=== PATIENT | male | born 1995 | race Caucasian/White ===

== ENCOUNTER 2022-02-24 16:16 | Emergency (ER) | payer OTHER ==
[~2022-02-24] VITALS: Ht 182.9 cm; Wt 81.6 kg
[~2022-02-24 16:16] MED LIST: IBUPROFEN600 MG PO
[2022-02-24] MEDS ORDERED: OMEPRAZOLE20 MG PO (17:19)
== END 2022-02-24 19:33 | disposition home or self-care (01) ==
LOC: ED 16:16
DX: J10.1 Influenza due to other identified influenza virus with other respiratory manifestations (principal); Z20.822 Contact with and (suspected) exposure to COVID-19; K21.9 Gastro-esophageal reflux disease without esophagitis; Z91.011 Allergy to milk products; Z79.899 Other long term (current) drug therapy
CPT/HCPCS: 87502; 99283; C9803; U0003

== ENCOUNTER 2023-07-31 10:17 | Day surgery (SDC) | payer OTHER ==
[~2023-07-31] VITALS: Ht 182.9 cm; Wt 79.1 kg
[~2023-07-31 10:17] MED LIST changes: +IBLOOD GLUCOSE TEST STRIP 1 EA TEST VI PRN; +LACTATED RINGER'S 1,000 ML IV SCH; +LIDOCAINE HCL 1% 5 ML SDV INJ ONE; +LIDOCAINE HCL 4% 50 ML BTL TOP SCH; +MIDAZOLAM HCL 5 MG/5 ML VIAL IV PRN; +OMEPRAZOLE20 MG PO; +fentaNYL citrate 100 MCG/2 ML VIAL IV PRN
[2023-07-31 10:34] VITALS: BP 128/77
[2023-07-31] MEDS ORDERED: MIDAZOLAM HCL 5 MG/5 ML VIAL ONE (11:27)
[2023-07-31] MEDS ORDERED: fentaNYL citrate 100 MCG/2 ML VIAL ONE (11:27)
--- NOTE | 2023-07-31 12:03 | NUR ---
07/31/23 1203 Jessie Chery 1155- PT ARRIVES TO PACU AWAKE AND TALKING. PT REPORTS NO PAIN OR NAUSEA. RESP EVEN AND UNLABORED. OXYGEN SAT HIGH 90'S TO 100% ON 3L VIA CO2 NC. 1202- OXYGEN TITRATED OFF. PT AWAKE ON AND OFF ON HIS OWN.
[2023-07-31 12:22] VITALS: BP 111/76
--- NOTE | 2023-08-01 09:47 | OR ---
[facility] [address], [place] [address] Signed DATE OF OPERATION: 07/31/2023 SURGEON: Angela Arellano MD PREOPERATIVE DIAGNOSES: Longstanding dysphagia, longstanding history of reflux and questionable history of eosinophilic esophagitis (2018). INDICATION: This 28-year-old white man is a patient of Dr. William Zaragoza. He formally saw Dr. Brown in [place]. The patient has had "lifelong" heartburn issues and developed dysphagia on or about 2015. He has had dysphagia from time to time even before that, however. He underwent upper endoscopy in 2018 from best I can tell, showing findings suggestive of eosinophilic esophagitis and "scarring" of the esophagus. He was prescribed a PPI medication (omeprazole) as well as possible topical steroids, but has only episodically taken the PPI medication and never really engaged fully in the topical steroid use. He has no family history of esophageal cancer. He is admitted at this time to undergo upper endoscopy to better characterize the problem of dysphagia mindful of his prior history of presumed eosinophilic esophagitis and possible esophageal stricture. He understands the risk of endoscopy, which include but are not limited to bleeding, infection, and perforation and wished to proceed. FINDINGS: There is no clinical evidence of eosinophilic esophagitis. He definitely had a dense stricture of the distal esophagus. Gentle but forceful passage of the scope through the GE junction did provide some level of dilation. He does have a poor flap valve. The stomach and duodenum were normal. CLOtest was negative. The distal esophageal stricture is no doubt accounting for his dysphagia. Multiple biopsies were taken of the stricture breaking up the ring, though formal dilation was not undertaken at this time. PROCEDURE IN DETAIL: The patient was brought to the endoscopy suite and given topical lidocaine hypopharyngeal anesthesia and placed in lateral decubitus position. He was given intravenous sedation to the point of slurred speech and nystagmus. Full cardiopulmonary monitoring was maintained. A bite block was placed. Olympus video upper endoscope was passed in the hypopharynx. Vocal cords were normal. Scope was advanced to the esophagus without problem. Esophagus throughout its length looked reasonably normal except in the distal portion where it was narrow and unyielding to the scope initially. This was surprising as it appeared to be patent and certainly Electronically Signed By: ANGELA ARELLANO MD 08/01/23 0947 PATIENT NAME: YARIEL OCONNOR OPERATIVE REPORT DATE OF : [birth year] REPORT #: [id number] PHYSICIAN: ANGELA ARELLANO MD PCP: WILLIAM ZARAGOZA MD REPORT IS CONFIDENTIAL AND NOT TO BE RELEASED WITHOUT AUTHORIZATION [facility] [address], [place] [address] Signed had no sign of ulceration, irregularity, Fung's epithelium or other similar problem. With deliberate but reasonably forcible pressure, the scope was passed through the GE junction affirming a stricture like narrowing. Evaluation of the stomach showed rugal folds to be normal. The antrum was normal as was the pylorus. The scope was passed in the duodenum, which was normal. Biopsies were taken of the duodenum and scope withdrawn. Biopsies taken of the antrum for both GARY and pathologic testing. Retroflexed view was undertaken showing a distorted flap valve but no sign of large hiatal hernia at this time. The scope was straightened, withdrawn, and multiple biopsies taken of the dense stricture of the distal esophagus. There was no evidence of Fung's epithelium or neoplasm proper. The scope was withdrawn to the mid esophagus was biopsied to assess for eosinophilic esophagitis, which showed no evidence of such finding (felinization, etc.) Scope was further withdrawn. Remaining esophagus and hypopharynx were normal. The patient was taken to the recovery room in good condition. CONCLUDING DIAGNOSIS: Dysphagia related to dense stricture. No doubt related to long-standing gastroesophageal reflux. He may still require a formal dilation, however. Biopsies were obtained to assess for malignancy at this time. We will initiate PPI medication, Prilosec 20 mg p.o. b.i.d. for two weeks transitioning to 20 mg daily. I will see him in the office in 4-6 weeks, we will assess his progress. He may require dilation and most definitely may require appropriate anti-reflux operation given his young age and long history of reflux related dysphagia. MD CHRISTIN Peng/ANGYL /[id number] cc: William Zaragoza MD Copies: WILLIAM ZARAGOZA DMD ~ Electronically Signed By: ANGELA ARELLANO MD 08/01/23 0947 PATIENT NAME: YARIEL OCONNOR OPERATIVE REPORT DATE OF : [birth year] REPORT #: [id number] PHYSICIAN: ANGELA ARELLANO MD PCP: WILLIAM ZARAGOZA MD REPORT IS CONFIDENTIAL AND NOT TO BE RELEASED WITHOUT AUTHORIZATION
--- NOTE | 2023-08-05 13:03 | PATH ---
[facility] [address], [place] [address] Signed SPECIMEN(S): A DUODENAL BIOPSY SPECIMEN(S): B ANTRUM BIOPSY SPECIMEN(S): C LOWER ESOPHAGEAL BIOPSY SPECIMEN(S): D MIDDLE ESOPHAGEAL BIOPSY SPECIMEN SOURCE: A. DUODENAL BIOPSY B. ANTRUM BIOPSY C. LOWER ESOPHAGEAL BIOPSY D. MIDDLE ESOPHAGEAL BIOPSY CLINICAL HISTORY: Esophageal dysphagia and history of eosinophilic esophagitis. Distal esophageal stricture with hiatal hernia. FINAL PATHOLOGIC DIAGNOSIS: A. 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 - Mild partial villous blunting is present with focally increased intraepithelial lymphocytes, nonspecific. See comment. B. Antrum, biopsies: - Mild chronic antral gastritis with vascular congestion, negative for active inflammation. - No H. pylori bacteria are detected by HE stain. C. Lower esophagus, biopsies: - Chronic esophagitis with increased eosinophils (up to 20 per high-power field), negative for Fung's metaplasia. D. Middle esophagus, biopsies: - Mild chronic esophagitis with increased eosinophils (up to 6 per high-power field). COMMENT: The findings in the duodenal biopsies (A1) are nonspecific for celiac disease, and peptic duodenitis is more likely. However, if there is a clinical concern for sprue, correlation with appropriate serologic testing is recommended. AMB MICROSCOPIC EXAMINATION: Histologic sections of all submitted blocks are examined by light microscopy. PATIENT NAME: YARIEL DEMARCO PATHOLOGY DATE OF : [birth year] REPORT #: [id number] PHYSICIAN: ЕЛЕНА PATHOLOGY PCP: WILLIAM RANKIN MD REPORT IS CONFIDENTIAL AND NOT TO BE RELEASED WITHOUT AUTHORIZATION [facility] [address], [place] [address] Signed These findings, together with the gross examination, support the pathologic diagnosis. GROSS DESCRIPTION: A. The specimen, labeled and designated "Demarco, duodenal biopsy," is received in formalin and consists of three kent soft tissue fragments, ranging from 0.1-0.3 cm. Entirely submitted in (A1). B. The specimen, labeled and designated "Demarco, antrum biopsy," is received in formalin and consists of three kent soft tissue fragments, ranging from 0.1-0.2 cm. Entirely submitted in (B1). C. The specimen, labeled and designated "Demarco, lower esophageal biopsy," is received in formalin and consists of four kent soft tissue fragments, ranging from 0.1-0.8 cm. Entirely submitted in (C1). D. The specimen, labeled and designated "Demarco, middle esophageal biopsy," is received in formalin and consists of one kent soft tissue fragment, 0.5 cm. Entirely submitted in (D1). VB (under the direct supervision of a pathologist) The Gross Description was prepared using a voice recognition system. The report was reviewed for accuracy; however, sound-alike word errors, addition and/or deletions may occur. If there is any question about this report, please contact Client Services. ADDITIONAL NOTES: Immunohistochemical and/or in situ hybridization studies if performed in this case included appropriate positive controls that reacted as expected. This test was developed and its performance characteristics determined by [facility]. It has not been cleared or approved by the U.S. Food and Drug Administration. The FDA has determined that such clearance or approval is not necessary. This test is used for clinical purposes. It should not be regarded as investigational or for research. [facility] is certified under the Clinical Laboratory Improvement Amendments of 1988 (CLIA) as qualified to perform high complexity clinical laboratory testing. PERFORMING LABORATORY: Technical component was performed by [facility], [address] [place] [address] (CLIA# [id number]). Professional interpretation was performed by [facility] [address] [facility] [id number] PATIENT NAME: YARIEL DEMARCO PATHOLOGY DATE OF : [birth year] REPORT #: [id number] PHYSICIAN: ЕЛЕНА BELLAMY PCP: WILLIAM RANKIN MD REPORT IS CONFIDENTIAL AND NOT TO BE RELEASED WITHOUT AUTHORIZATION [facility] [address] [facility] [place], [place] [address] Signed Diagnostician: Mariana Newby MD Pathologist Electronically Signed 08/05/2023 Copies: ~ PATIENT NAME: YARIEL DEMARCO PATHOLOGY DATE OF : [birth year] REPORT #: [id number] PHYSICIAN: ЕЛЕНА BELLAMY PCP: WILLIAM RANKIN MD REPORT IS CONFIDENTIAL AND NOT TO BE RELEASED WITHOUT AUTHORIZATION
== END 2023-07-31 12:28 | disposition home or self-care (01) ==
LOC: OPS 10:17 → DS 10:26 → OPS 11:45
PROVIDERS: ATTEND Surgery
PROC: 0DB98ZX Excision of Duodenum, Via Natural or Artificial Opening Endoscopic, Diagnostic (ICD-10-PCS; 2023-07-31)
PROC: 0DB68ZX Excision of Stomach, Via Natural or Artificial Opening Endoscopic, Diagnostic (ICD-10-PCS; 2023-07-31)
PROC: 0DB28ZX Excision of Middle Esophagus, Via Natural or Artificial Opening Endoscopic, Diagnostic (ICD-10-PCS; 2023-07-31)
PROC: 0DB38ZX Excision of Lower Esophagus, Via Natural or Artificial Opening Endoscopic, Diagnostic (ICD-10-PCS; principal; 2023-07-31 11:45)
DX: K22.2 Esophageal obstruction (principal); K21.00 Gastro-esophageal reflux disease with esophagitis, without bleeding; K29.50 Unspecified chronic gastritis without bleeding; K29.80 Duodenitis without bleeding; K31.89 Other diseases of stomach and duodenum; Z79.899 Other long term (current) drug therapy; Z91.011 Allergy to milk products
CPT/HCPCS: G0500; J2250; J3010; J7121